=== PATIENT | male | born 1955 | race Caucasian/White ===

== ENCOUNTER → 2018-12-06 10:03 | Outpatient (CLI) | payer MEDICAID, SELFPAY ==
--- NOTE | 2018-12-06 10:08 | CI_ITS ---
Cerebrovascular Exam Indications: Follow-up carotid 433.10. IMPRESSIONS 1. Theright vertebral arteryis patent with normal antegrade flow. The left vertebral arteryshows low flow with retrograde flow. 2. Study suggests 20-49% stenosis involving the right internal carotid artery. No change from the study of 16-Feb-2018. 3. Study suggests 50-69% stenosis involving the left internal carotid artery. No change from the study of 16-Feb-2018. 4. Study suggests>50% stenosis involving the left external carotid artery. No change from the study of 16-Feb-2018. History: Risk factors: Current tobacco use. Carotid duplex study. Complete study and Doppler flow study including spectral analysis, color and rodriguez scale imaging. Height: Height: 165.1cm. Height: 65in. Weight: Weight: 81.6kg. Weight: 179.6lb. Body mass index: BMI: 30kg/m^2. Body surface area: BSA: 1.96m^2. Location: Vascular laboratory. Patient status: Outpatient. Tables: Arterial flow: + +--------+--------+ Location V [facility] V ed + +--------+--------+ Right CCA - proximal 71.5cm/s 14.1cm/s + +--------+--------+ Right CCA - distal 77.8cm/s 19.6cm/s + +--------+--------+ Right ECA 130cm/s 16.2cm/s + +--------+--------+ Right ICA - proximal 91.1cm/s 24.4cm/s + +--------+--------+ Right ICA - mid 91.1cm/s 26.7cm/s + +--------+--------+ Right ICA - distal 77.5cm/s 23.4cm/s + +--------+--------+ Right vertebral 35.4cm/s 12.6cm/s + +--------+--------+ Left CCA - proximal 107cm/s 18.7cm/s + +--------+--------+ Left CCA - distal 79.7cm/s 17.8cm/s + +--------+--------+ Left ECA 294cm/s 33.2cm/s + +--------+--------+ Left ICA - proximal 136cm/s 38.4cm/s + +--------+--------+ Left ICA - mid 96.9cm/s 27.7cm/s + +--------+--------+ Left ICA - distal 65.3cm/s 16.4cm/s + +--------+--------+ Left vertebral 33.5cm/s -------- + +--------+--------+ Velocity ratios: + + + + + + Right, V sys Right, V ed Left, V sys Left, V ed + + + + + + Max ICA/dist CCA 1.17 1.36 1.71 2.16 + + + + + + (Report amended ) Electronically signed by: Gianfranco Gavin [id number]
== END ==
PROVIDERS: PCP Nurse Practitioner; Visit Provider Internal Medicine
DX: I65.23 Occlusion and stenosis of bilateral carotid arteries (principal); D75.1 Secondary polycythemia; E78.5 Hyperlipidemia, unspecified; H34.212 Partial retinal artery occlusion, left eye; I11.9 Hypertensive heart disease without heart failure; I25.10 Atherosclerotic heart disease of native coronary artery without angina pectoris; I73.9 Peripheral vascular disease, unspecified; J44.9 Chronic obstructive pulmonary disease, unspecified
CPT/HCPCS: 93880

== ENCOUNTER → 2019-08-01 09:56 | Outpatient (CLI) | payer MEDICAID, SELFPAY ==
[2019-08-01 16:17] LABS: Alanine Aminotransferase 30 U/L (12-78); Albumin Level 3.8 gm/dL (3.4-5.0); Alkaline Phosphatase 116 U/L (46-116); Aspartate Amino Transferase 21 U/L (15-37); Bilirubin,Direct 0.1 mg/dL (0.0-0.2); Bilirubin,Indirect 0.3 mg/dL (0.0-0.9); Bilirubin,Total 0.4 mg/dL (0.2-1.0); Chol/HDL Ratio 5.9 (1-3.5); Cholesterol 154 mg/dL (140-200); HDL Cholesterol 26 mg/dL (27-67); LDL Cholesterol 64 mg/dL (0-130); Triglycerides 318 mg/dL (30-200); VLDL Cholesterol 64 mg/dL (0-40)
== END ==
PROVIDERS: Visit Provider Urology
DX: E78.5 Hyperlipidemia, unspecified (principal); I25.10 Atherosclerotic heart disease of native coronary artery without angina pectoris; I65.29 Occlusion and stenosis of unspecified carotid artery
CPT/HCPCS: 36415; 80061; 80076

== ENCOUNTER → 2021-06-23 10:21 | Outpatient (CLI) | payer MEDICAID, SELFPAY ==
--- NOTE | 2021-06-23 10:22 | CA_ITS ---
APPROVED REPORT Centerless Grinder Tender: JESS Laterality: Bilateral Study Quality: Adequate Indications: SHIREEN Risk Factors Hypertension: CAD, Smoking Doppler Spectral Velocity Analysis ECA (R) 131.10/15.40 cm/s ECA (L) 533.00/30.70 cm/s dICA (R) 87.40/20.60 cm/s dICA (L) 113.70/12.50 cm/s Evaristo (R) 76.30/18.00 cm/s Evaristo (L) 135.10/25.10 cm/s pICA (R) 103.70/18.00 cm/s pICA (L) 172.50/32.50 cm/s dCCA (R) 79.70/11.10 cm/s dCCA (L) 79.70/12.90 cm/s pCCA (R) 81.40/9.40 cm/s pCCA (L) 98.50/13.70 cm/s Vert (R) 26.60/11.10 cm/s Vert (L) 61.60/24.10 cm/s ICA/CCA 1.30 ICA/CCA 1.75 Findings Duplex evaluation demonstrates stenosis of the right proximal internal carotid artery in the range of 20-49% with PSV <140 cm/sec, EDV <100 cm/sec, and IC/CC Ratio <4.0. Duplex evaluation demonstrates antegrade flow of the bilateral Vertebral Arteries. Duplex evaluation demonstrates stenosis of the left proximal internal carotid artery in the range of 50-69% with PSV =140 cm/sec, EDV <100 cm/sec, and IC/CC Ratio <4.0. Conclusion Duplex evaluation demonstrates stenosis of the right proximal internal carotid artery in the range of 20-49% with PSV <140 cm/sec, EDV <100 cm/sec, and IC/CC Ratio <4.0. Duplex evaluation demonstrates antegrade flow of the bilateral Vertebral Arteries. Duplex evaluation demonstrates stenosis of the left proximal internal carotid artery in the range of 50-69% with PSV =140 cm/sec, EDV <100 cm/sec, and IC/CC Ratio <4.0. Electronically signed by : Steve Pierson MD 06/24/2021 18:51:09
--- NOTE | 2021-06-23 10:38 | CA_ITS ---
APPROVED REPORT EXAM: Comprehensive 2D, Doppler, and color-flow Echocardiogram Sports Development Officer: CHAYO Santana, RVS Ht: 5 ft 5 in Wt: 170lbs BSA: 1.85 BP: 147/86 mmHg Indications: CAD, smoker, hx-aFIB, hX 2D Dimensions Left Atrium 2.92 cm LA Volume 34.90 mL LVOT 2.08 cm (M/F) 1.5-2.5 LA Volume Index 18.90 mL/m2 (M/F) 16-34 M-Mode Dimensions RVDd 3.49 cm (0.9-2.6) LA Diam 3.81 cm (1.9-4.0) LVDd 4.44 cm (3.5-5.7) Ao Diam 3.34 cm (2.0-3.7) LVDs 3.34 cm (3.5-5.7) IVSd 0.95 cm (0.6-1.1) PWd 0.76 cm (0.6-1.1) EF (Teich) 49.30% EPSs 0.46 cm FS 24.80% EDV (Teich) 89.60 mL TAPSE 1.91 (<1.7) ESV (Teich) 45.40 mL LV Diastology E Decel Time 307.00 (160-240 msec) E/A Ratio 0.80 MED E' 6.00 (< 7 cm/sec) MED A' 7.80 cm/s E'/MED E' Ratio 8.42 (>14) LAT E' 6.60 (<10 cm/sec) LAT A' 9.40 cm/s E/LAT E' Ratio 7.65 (>14) Aortic Valve AoV Peak Leobardo. 173.00 (50-130 cm/s) AO Peak GR. 12.00 mmHg AO Mean GR. 6.30 (<5 mmHg) AO VTI 31.10 (18-25 cm) Mitral Valve MV A Velocity 63.00 (40-130 cm/s) E/A Ratio 0.80 MV Decel. Time 307.00 (160-240 ms) Pulmonary Valve PV Peak Velocity 96.00 (50-150 cm/s) Left Ventricle Left atrium is mildly enlarged, left ventricle is normal size, mild concentric left ventricular hypertrophy, visually estimated ejection fraction 55% with no regional wall motion abnormality, grade 1 diastolic dysfunction seen without tissue Doppler evidence of raise left atrial pressure. Right Ventricle Right atrium and right ventricle are mildly enlarged with normal contractility. Aortic Valve Aortic valve is thickened and calcified without Doppler evidence of aortic stenosis or aortic insufficiency. Mitral Valve Mitral valve leaflets are minimally thickened, there is mild mitral regurgitation. Tricuspid Valve Tricuspid valve grossly normal, there is mild tricuspid regurgitation, tricuspid regurgitation jet velocity is inadequate for calculation of the right ventricular systolic pressure. Pulmonic Valve Pulmonic valve is poorly visualized. Great Vessels Aortic root is normal size. Inferior vena cava is normal size with normal inspiratory collapse. Pericardium No significant pericardial effusion noted. Conclusion 1. Mild biatrial enlargement, normal left ventricular size, mild concentric left ventricular hypertrophy, visually estimated ejection fraction 55% with no regional wall motion abnormality, grade 1 diastolic dysfunction seen without tissue Doppler evidence of raise left atrial pressure. 2. Mild mitral and tricuspid regurgitation. 3. No significant pericardial effusion noted. 4. Inferior vena cava is normal size with normal inspiratory collapse. Electronically signed by : Amilcar Wang MD 06/23/2021 20:55:53
== END ==
PROVIDERS: Visit Provider Urology
DX: I65.23 Occlusion and stenosis of bilateral carotid arteries (principal); R09.89 Other specified symptoms and signs involving the circulatory and respiratory systems; I25.10 Atherosclerotic heart disease of native coronary artery without angina pectoris; I11.9 Hypertensive heart disease without heart failure; D75.1 Secondary polycythemia; E78.2 Mixed hyperlipidemia; H34.212 Partial retinal artery occlusion, left eye; Z72.0 Tobacco use; E78.5 Hyperlipidemia, unspecified; R94.31 Abnormal electrocardiogram [ECG] [EKG]
CPT/HCPCS: 93306; 93880

== ENCOUNTER → 2022-06-22 10:16 | Outpatient (CLI) | payer MEDICARE, MEDICAID, SELFPAY ==
--- NOTE | 2022-06-22 10:18 | CA_ITS ---
FINAL REPORT TECHNIQUE: Color Doppler, duplex Doppler and rodriguez scale sonography of the bilateral neck arterial vasculature was performed. Velocities were measured in the carotid arteries. Stenosis evaluation based on the validated velocity criteria. CLINICAL HISTORY: SHIREEN,HTN,HLD,SMOKER FINDINGS: The peak systolic velocity of the right common carotid artery is 63 cm/s. The peak systolic velocity of the right internal carotid artery is 95 cm/s and end diastolic velocity 16 cm/s. The ICA/CCA ratio is 1.5. A moderate amount of plaque is present. The right external carotid artery is patent. The right vertebral artery is patent with antegrade flow. The peak systolic velocity of the left common carotid artery is 74 cm/s. The peak systolic velocity of the left internal carotid artery is 169 cm/s and end diastolic velocity 31 cm/s. The ICA/CCA ratio is 2.3. A moderate amount of plaque is present. The left external carotid artery is patent.The left vertebral artery is patent with antegrade flow. IMPRESSION: Less than 50% right carotid stenosis. There is elevation of the left ICA/CCA ratio of uncertain significance. Moderate stenosis is not excluded. Recommend CTA or catheter angiogram to further evaluate. Bilateral patent vertebral arteries with antegrade flow. Reviewed, Interpreted and Dictated by Tl Lenz III, MD Transcribed by Cynthia Washburn Authenticated and [facility]
== END ==
PROVIDERS: PCP Internal Medicine; Visit Provider Nurse Practitioner Family
DX: I65.23 Occlusion and stenosis of bilateral carotid arteries (principal)
CPT/HCPCS: 93880

== ENCOUNTER → 2022-07-08 11:58 | Outpatient (CLI) | payer MEDICARE, MEDICAID, SELFPAY ==
[2022-07-08 13:08] LABS: Blood Urea Nitrogen 12 mg/dl (9-20); Estimated Glomerular Filt Rate 97 ml/min (>60); GFR (African American) 117 ML/MIN (>60)
--- NOTE | 2022-07-08 13:11 | CT_ITS ---
FINAL REPORT TECHNIQUE: Thin section axial CT with IV contrast supplemented with multiplanar reconstruction under CT angiogram protocol. This study was performed with techniques to keep radiation doses as low as reasonably achievable (ALARA). Individualized dose reduction techniques using automated exposure control or adjustment of mA and/or kV according to the patient''s size were employed. NASCET criteria was utilized during interpretation. CLINICAL HISTORY: abnl carotid artery u/s FINDINGS: Aortic arch: Arch shows no significant narrowing. Great vessel origins are widely patent. Right carotid: There is calcified plaque at the carotid bifurcation and carotid bulb. No significant stenosis is seen of the cervical common or internal carotid artery. Left carotid: There is calcified plaque at the carotid bifurcation and carotid bulb. There is irregular plaque in the left bulb with less than 50% stenosis. The more distal left ICA is patent. Vertebral: The left vertebral artery is diminutive and may be congenitally hypoplastic. No significant stenosis is present. IMPRESSION: Calcified plaque at the bifurcations and carotid bulbs bilaterally with less than 50% stenosis. Diminutive left vertebral artery may be congenitally hypoplastic. Reviewed, Interpreted and Dictated by Tl Lenz III, MD Transcribed by Olman Pan Authenticated and [facility]
== END ==
PROVIDERS: PCP Internal Medicine; Visit Provider Physician Assistant
DX: I65.23 Occlusion and stenosis of bilateral carotid arteries (principal); R93.89 Abnormal findings on diagnostic imaging of other specified body structures
CPT/HCPCS: 36415; 70498; 82565; 84520; Q9967

== ENCOUNTER → 2023-04-20 10:49 | Outpatient (CLI) | payer MEDICARE, MEDICAID, SELFPAY ==
[2023-04-20 11:24] LABS: Basophils # 0.1 K/mm3 (0-0.2); Basophils % 0.7 % (0.1-2.0); Eosinophils # 0.2 K/mm3 (0.0-0.4); Eosinophils % 1.9 % (0.1-12.0); Hematocrit 55.2 % (42.0-52.0); Lymphocytes # 2.3 K/mm3 (0.7-4.5); Lymphocytes % 18.7 % (10-50); Mean Corpuscular HGB Conc 32.8 g/dL (31.8-35.4); Mean Corpuscular Hemoglobin 30.6 pg (27.0-31.2); Mean Corpuscular Volume 93.4 fl (80-94); Mean Platelet Volume 7.5 fl (7.4-10.4); Monocytes # 0.9 K/mm3 (0.1-1.0); Monocytes % 7.3 % (1.7-9.3); Neutrophils # 8.7 K/mm3 (1.8-7.8); Neutrophils % 71.4 % (37.0-80.0); Platelet Count 335 K/mm3 (142-424); Red Blood Count 5.91 M/mm3 (4.60-6.20); Red Cell Distribution Width 13.4 % (11.5-17.5); White Blood Count 12.2 K/mm3 (4.8-10.8)
[2023-04-20 11:47] LABS: Alanine Aminotransferase 23 U/L (12-78); Albumin Level 4.1 g/dl (3.5-5.0); Alkaline Phosphatase 134 U/L (38-126); Anion Gap 12.4 mEq/L (5-15); Aspartate Amino Transferase 30 U/L (17-59); Bilirubin,Indirect 0.3 mg/dL (0.0-0.9); Bilirubin,Total 0.3 mg/dl (0.2-1.3); Bilirubin,Unconjugated 0.5 mg/dL (0.0-1.1); Blood Urea Nitrogen 11 mg/dl (9-20); Calcium 10.5 mg/dl (8.4-10.2); Carbon Dioxide 32 mmol/L (22.0-30.0); Chloride 101 mmol/L (98-107); Chol/HDL Ratio 4.8 (1-3.5); Cholesterol 163 mg/dl (140-200); Estimated Glomerular Filt Rate 84 ml/min (>60); GFR (African American) 102 ML/MIN (>60); Glucose 76 mg/dl (74-100); HDL Cholesterol 34 mg/dl (40-60); Potassium 3.4 mmoL/L (3.5-5.1); Sodium 142 mmol/L (136-145); Total Protein,Serum 6.9 g/dl (6.3-8.2); Triglycerides 328 mg/dl (30-150); VLDL Cholesterol 66 mg/dL (0-40)
[2023-04-20 11:57] LABS: Direct LDL Cholesterol 90.58 mg/dL (100-129)
[2023-04-20 12:04] LABS: Free T4 (Free Thyroxine) 0.77 ng/dl (0.78-2.19)
[2023-04-20 12:18] LABS: Thyroid Stimulating Hormone 1.98 uIU/mL (0.465-4.68)
[2023-04-20 14:40] LABS: Hemoglobin 18.1 g/dL (14.1-18.0)
== END ==
PROVIDERS: Visit Provider Nurse Practitioner
DX: E78.5 Hyperlipidemia, unspecified (principal); I11.9 Hypertensive heart disease without heart failure; I25.10 Atherosclerotic heart disease of native coronary artery without angina pectoris; I65.29 Occlusion and stenosis of unspecified carotid artery; J44.9 Chronic obstructive pulmonary disease, unspecified; Z72.0 Tobacco use; I63.9 Cerebral infarction, unspecified; R06.00 Dyspnea, unspecified; E11.9 Type 2 diabetes mellitus without complications; Z79.84 Long term (current) use of oral hypoglycemic drugs
CPT/HCPCS: 36415; 80048; 80061; 80076; 84439; 84443; 85025

== ENCOUNTER 2023-12-27 08:59 | Outpatient (CLI) | payer MEDICARE, MEDICAID, SELFPAY ==
--- NOTE | 2023-12-27 09:00 | CA_ITS ---
FINAL REPORT TECHNIQUE: Color Doppler, duplex Doppler and rodriguez scale sonography of the bilateral neck vasculature was performed. Velocities were measured in the carotid arteries. Stenosis evaluation based on velocity criteria. CLINICAL HISTORY: SHIREEN, smoker ,dm ,hld previous exam 06/26 COMPARISON: 06/22/2022 FINDINGS: The peak systolic velocity of the right common carotid artery is 86 cm/sec and internal carotid artery 120 cm/sec. The diastolic velocity in the internal carotid artery is 25 cm/sec. The ICA/CCA ratio is 1.9. Visually, a small to moderate amount of plaque, some calcified, is seen. These findings are consistent with less than 50% stenosis. The external carotid artery is patent. The right vertebral artery is patent with antegrade flow. The peak systolic velocity of the left common carotid artery is 109 cm/sec and internal carotid artery 166 cm/sec. The diastolic velocity in the internal carotid artery is 33 cm/sec. The ICA/CCA ratio is 1.7. Visually, a small to moderate amount of plaque, some calcified, is seen. These findings are consistent with less than 50% stenosis. The external carotid artery is patent. The left vertebral artery is patent with antegrade flow. IMPRESSION: Velocities and ICA/CCA ratios are consistent with less than 50% stenosis in the carotid arteries bilaterally. There is moderate irregular calcified plaque identified. Bilateral patent vertebral arteries. If indicated, CTA or MRA could further evaluate. Reviewed, Interpreted and Dictated by Ramirez Staley MD Transcribed by Larissa Bowen Authenticated and [facility]
== END 2023-12-27 23:59 | disposition home or self-care (01) ==
LOC: RT 09:00
PROVIDERS: Visit Provider Nurse Practitioner Family
DX: R09.89 Other specified symptoms and signs involving the circulatory and respiratory systems (principal); I25.10 Atherosclerotic heart disease of native coronary artery without angina pectoris; I11.9 Hypertensive heart disease without heart failure; E78.5 Hyperlipidemia, unspecified; Z72.0 Tobacco use; J44.9 Chronic obstructive pulmonary disease, unspecified; I65.23 Occlusion and stenosis of bilateral carotid arteries
CPT/HCPCS: 93880

== ENCOUNTER 2025-01-02 10:50 | Outpatient (CLI) | payer MEDICARE, MEDICAID, SELFPAY ==
[2025-01-02 11:09] LABS: Basophils # 0.1 K/mm3 (0-0.2); Basophils % 0.8 % (0.1-2.0); Eosinophils # 0.3 Kmm3 (0.0-0.4); Eosinophils % 2.8 % (0.1-12.0); Hematocrit 46.5 % (42.0-52.0); Hemoglobin 15.7 g/dL (14.1-18.0); Lymphocytes # 2.6 K/mm3 (0.7-4.5); Lymphocytes % 25.7 % (10-50); Mean Corpuscular HGB Conc 33.8 g/dL (31.8-35.4); Mean Corpuscular Hemoglobin 31.2 pg (27.0-31.2); Mean Corpuscular Volume 92.4 fl (80-94); Mean Platelet Volume 9.1 fl (7.4-10.4); Monocytes # 1.2 K/mm3 (0.1-1.0); Monocytes % 12.2 % (1.7-9.3); Neutrophils # 5.8 K/mm3 (1.8-7.8); Neutrophils % 57.8 % (37.0-80.0); Nucleated Red Blood Cells # 0 10^3/uL; Nucleated Red Blood Cells % 0 %; Platelet Count 327 K/mm3 (142-424); Red Blood Count 5.03 M/mm3 (4.60-6.20); Red Cell Distribution Width 13.1 % (11.5-17.5); Red Cell Distribution Width-SD 44.4 fL; White Blood Count 10.1 K/mm3 (4.8-10.8)
[2025-01-02 11:36] LABS: Alanine Aminotransferase 20 U/L (12-78); Albumin Level 4.1 g/dl (3.5-5.0); Alkaline Phosphatase 119 U/L (38-126); Anion Gap 9.8 mEq/L (5-15); Aspartate Amino Transferase 23 U/L (17-59); Bilirubin,Direct 0.2 mg/dl (0.0-0.4); Bilirubin,Indirect 0.3 mg/dL (0.0-0.9); Bilirubin,Total 0.5 mg/dl (0.2-1.3); Bilirubin,Unconjugated 0.2 mg/dL (0.0-1.1); Blood Urea Nitrogen 25 mg/dl (9-20); Calcium 10.4 mg/dl (8.4-10.2); Carbon Dioxide 27 mmol/L (22.0-30.0); Chloride 106 mmol/L (98-107); Chol/HDL Ratio 4.2 (1-3.5); Cholesterol 121 mg/dl (140-200); Estimated Glomerular Filt Rate 55 ml/min (>60); GFR (African American) 67 ML/MIN (>60); Glucose 79 mg/dl (74-100); HDL Cholesterol 29 mg/dl (40-60); Potassium 3.8 mmoL/L (3.5-5.1); Sodium 139 mmol/L (136-145); Total Protein,Serum 6.3 g/dl (6.3-8.2); Triglycerides 259 mg/dl (30-150); VLDL Cholesterol 52 mg/dL (0-40)
[2025-01-02 11:48] LABS: Direct LDL Cholesterol 54.91 mg/dL (100-129)
[2025-01-02 11:51] LABS: Free T4 (Free Thyroxine) 0.84 ng/dl (0.78-2.19)
[2025-01-02 12:07] LABS: Thyroid Stimulating Hormone 1.18 uIU/mL (0.465-4.68)
== END 2025-01-02 23:59 | disposition home or self-care (01) ==
LOC: LAB 10:52
PROVIDERS: PCP Family Medicine; Visit Provider Nurse Practitioner Family
DX: I07.1 Rheumatic tricuspid insufficiency (principal); I34.0 Nonrheumatic mitral (valve) insufficiency; I10 Essential (primary) hypertension; E78.5 Hyperlipidemia, unspecified; I65.23 Occlusion and stenosis of bilateral carotid arteries
CPT/HCPCS: 36415; 80048; 80061; 80076; 84439; 84443; 85025

== ENCOUNTER 2025-02-07 09:13 | Outpatient (CLI) | payer MEDICARE, MEDICAID, SELFPAY ==
--- NOTE | 2025-02-07 09:30 | CA_ITS ---
APPROVED REPORT EXAM: Comprehensive 2D, Doppler, and color-flow Echocardiogram Electric Range Servicer: Mariel Polo RT(R) Ht: 5 ft 5 in Wt: 150lbs BSA: 1.75 BP: 114/72 mmHg Indications: edema, diabetes, hypertension, smoker, dyspnea on exertion, CAD. 2D Dimensions LVEF (Antonio's) 58.40 % M: 52 - 72 LV Volume 86.40 mL M: 62 - 150 LV Volume Index 49.4 mL/m2 M: 34 - 74 EF AP4 58.90 % EF AP2 58.7 % EF BP 58.4 % GL Strain -13.3 % M-Mode Dimensions RVDd 2.97 cm (0.9-2.6) LA Diam 2.18 cm (1.9-4.0) LVDd 3.82 cm (3.5-5.7) LVDs 2.68 cm (3.5-5.7) IVSd 1.06 cm (0.6-1.1) PWd 0.98 cm (0.6-1.1) EF (Teich) 57.70% FS 29.80% EDV (Teich) 62.70 mL ESV (Teich) 26.50 mL LV Diastology E Decel Time 227 (160-240 msec) E/A Ratio 0.7 Mitral Valve MV E Max Leobardo. 49.0 (40-130 cm/s) MV A Velocity 73.0 (40-130 cm/s) E/A Ratio 0.66 MV PHT 66.0 ms Left Ventricle The left ventricle is normal size. The left ventricular systolic function is normal. The left ventricular ejection fraction is within the normal range. There is marked increase in LV wall thickness. IVSD is 1.4 cm. There is normal LV segmental wall motion. Transmitral Doppler flow pattern suggests impaired LV relaxation. LVEF is 60%. Right Ventricle The right ventricle is normal size. The right ventricular systolic function is normal. Atria The left atrium size is normal. The right atrium size is normal. There is no Doppler evidence of interatrial shunt. Aortic Valve Aortic valve is mildly thickened. There is no aortic valvular stenosis. Trace aortic regurgitation. Mitral Valve The mitral valve is normal in structure. No evidence of mitral valve stenosis. Trace mitral regurgitation. Tricuspid Valve Tricuspid valve is grossly normal in structure and function. Trace tricuspid regurgitation. There is insufficient TR jet to estimate RVSP. Pulmonic Valve The pulmonary valve is normal in structure. Trace pulmonic regurgitation. Great Vessels The aortic root is normal in size. IVC is normal in size and collapses >50% with inspiration. Pericardium There is no pericardial effusion. Other Information Study Quality: Fair Conclusion Normal biventricular systolic function. Marked increase in LV wall thickness. IVSD is 1.4 cm. No significant valvular stenosis or regurgitation. In the setting of marked increased LV wall thickness, further evaluation for infiltrative cardiomyopathy is suggested with cardiac MRI (amyloidosis protocol), PYP nuclear scan, and amyloidosis lab testing. Electronically signed by : Laura Baltazar MD 02/14/2025 14:36:16
== END 2025-02-07 23:59 | disposition home or self-care (01) ==
LOC: RT 09:14
PROVIDERS: PCP Family Medicine; Visit Provider Nurse Practitioner Family
DX: I08.1 Rheumatic disorders of both mitral and tricuspid valves (principal); I11.9 Hypertensive heart disease without heart failure; I65.29 Occlusion and stenosis of unspecified carotid artery; F17.200 Nicotine dependence, unspecified, uncomplicated; I25.10 Atherosclerotic heart disease of native coronary artery without angina pectoris; E11.9 Type 2 diabetes mellitus without complications; E78.5 Hyperlipidemia, unspecified
CPT/HCPCS: 93306

== ENCOUNTER 2025-03-05 09:28 | Outpatient (CLI) | payer MEDICARE, MEDICAID, SELFPAY ==
[2025-03-05 10:33] LABS: Chloride 102 mmol/L (98-107); Potassium 4.0 mmoL/L (3.5-5.1)
[2025-03-05 10:36] LABS: Blood Urea Nitrogen 21 mg/dl (9-20); Calcium 9.9 mg/dl (8.4-10.2); Carbon Dioxide 29 mmol/L (22.0-30.0); Creatinine,Serum 1.00 mg/dl (0.66-1.25); Estimated Glomerular Filt Rate 74 ml/min (>60); GFR (African American) 90 ML/MIN (>60); Glucose 89 mg/dl (74-100); Total Protein,Serum 6.1 g/dl (6.3-8.2)
[2025-03-05 11:10] LABS: Anion Gap 8.0 mEq/L (5-15); Sodium 135 mmol/L (136-145)
[2025-03-06 15:34] LABS: Albumin 3.2 g/dL (2.9-4.4); Alpha-1-Globulin 0.2 g/dL (0.0-0.4); Alpha-2-Globulin 0.7 g/dL (0.4-1.0); Gamma Globulin 0.8 g/dL (0.4-1.8)
[2025-03-07 16:23] LABS: Immunoglobulin A, Qn 192 mg/dL (61-437); Immunoglobulin G, Qn 687 mg/dL (603-1613); Immunoglobulin M, Qn 217 mg/dL (20-172)
[2025-03-10 15:45] LABS: PDF SCANNED REPORT
== END 2025-03-05 23:59 | disposition home or self-care (01) ==
LOC: LAB 09:29
PROVIDERS: Visit Provider Nurse Practitioner Family
DX: E85.89 Other amyloidosis (principal); R93.1 Abnormal findings on diagnostic imaging of heart and coronary circulation; I65.23 Occlusion and stenosis of bilateral carotid arteries; I25.10 Atherosclerotic heart disease of native coronary artery without angina pectoris; I11.9 Hypertensive heart disease without heart failure
CPT/HCPCS: 36415; 80048; 82565; 82784; 83521; 84155; 84165; 84520; 86334

== ENCOUNTER 2025-03-20 10:13 | Outpatient (CLI) | payer MEDICARE, MEDICAID, SELFPAY ==
--- NOTE | 2025-03-20 10:30 | MR_ITS ---
APPROVED REPORT River Guide: CLINICAL INDICATION Increased LV wall thickness, evaluation for infiltrative cardiomyopathy TECHNIQUE Image Acquisition: Cardiac magnetic resonance (CMR) was performed on Siemens Espree MRI 1.5T scanner. Software platform sequences were performed using the Siemens Xactium MR B19 platform. A set of three-plane, low-resolution, large [id number] localizers were initially acquired. Then axial, coronal, sagittal TrueFISP, as well as axial HASTE images, were obtained. These were followed by gated TrueFISP breathold cinematic sequences obtained in the short axis with 8 mm slices and 2 mm gaps, 2-chamber (vertical long axis), 3-chamber, 4-chamber (horizontal long axis). A bolus of contrast was injected intravenously with first-pass sequences obtained in the short axis and four-chamber planes. After approximately 10 minutes, a TI qa engineer sequence was performed to determine the optimal TI time. Using the optimized TI time, delayed contrast enhancement segmented inversion???recovery TurboFLASH sequences were obtained in the short axis, 2-chamber, 3-chamber, and 4-chamber projections. 2D-velocity phase mapping was performed. Functional parameters were calculated by offline analysis on an independent workstation ([employer], [employer]). Contrast: ProHance??? (Gadoteridol) FINDINGS MORPHOLOGY AND FUNCTION Left ventricle: The left ventricle cavity is small. The indexed left ventricular end-diastolic volume (LVEDVi) is 35 ml/m2 (reference range 57-105 ml/m2 in males, 56-96 ml/m2 in females). Low normal left ventricular systolic function is present. There is concentric increase in left ventricular wall thickness, up to 14.6 mm. There are no regional wall motion abnormalities noted. LVEF is calculated at 52.0% (reference range 57-77%). Right ventricle: The right ventricle cavity is small. The indexed right ventricular end-diastolic volume (RVEDVi) is 34 ml/m2 (reference range 61-121 ml/m2 in males, 48-112 ml/m2 in females). Mild reduction in right ventricular systolic function is present. RVEF is calculated at 43.0% (reference range 52-72% in males, 51-71% in females). Atria: The left atrium is normal in size. The maximum indexed left atrial volume is 19 ml/m2 (reference range 26-52 ml/m2 in males, 27-53 ml/m2 in females). The right atrium is normal in size. The maximum indexed right atrial volume is 18 ml/m2 (reference range 18-90 ml/m2). Aorta: The diameter of the aortic annulus is normal, measuring 30 mm (coronal view reference range 21-30 mm in males, 19-27 mm in females). The diameter of the aortic sinus is normal, measuring 36 mm (coronal view reference range 25-42 mm in males, 24-36 mm in females). The diameter of the sinotubular junction is normal, measuring 29 mm (coronal view reference range 18-32 mm in males, 18-28 mm in females). The diameters of the ascending and descending thoracic aorta are normal. Main pulmonary artery: The main pulmonary artery is mildly dilated, measuring 32 mm in diameter. Pericardium: The pericardial thickness is normal. The pericardial thickness measures 1.5 mm (normal < 4.0 mm). There is a trivial circumferential pericardial effusion present. VALVES The valvular morphologies in the visualized sequences appear normal. There is no significant valvular stenosis or regurgitation of the mitral, aortic, tricuspid, or pulmonic valve noted visually. Systolic anterior motion of the mitral valve is not visualized. Ratio of pulmonary to systemic flow, Qp:Qs ratio = 0.9 (normal < or = 1.2, hemodynamically significant shunt > 1.5), demonstrating no evidence of hemodynamically significant shunt. TISSUE CHARACTERIZATION Resting Perfusion: Perfusion analysis is not performed in the study. Myocardial Fibrosis and/or edema: Multiple patterns of late gadolinium enhancement are present, including transmural LGE in the basal to mid inferior LV wall, mid-myocardial LGE in the inferolateral and lateral LV adrian, as well as patchy LGE in the septal and anterior LV adrian. The LGE is consistent with presence of myocardial scarring or fibrosis in the corresponding regions. OTHER Diffuse pulmonary groundglass opacities bilaterally with increased interstitial markings bibasally. Correlation with CT chest is suggested. IMPRESSION Small LV cavity with low normal LV systolic function. LVEDVi= 35 ml/m2 and LVEF= 52.0%. Marked concentric increase in LV wall thickness up to 14.6 mm. Small RV cavity with mild reduction in RV systolic function. RVEDVi= 34 ml/m2 and RVEF= 43.0%. No atrial enlargement. Multiple patterns of late gadolinium enhancement are present, including transmural LGE in the basal to mid inferior LV wall, mid-myocardial LGE in the inferolateral and lateral LV adrian, as well as patchy LGE in the septal and anterior LV adrian. Ratio of pulmonary to systemic flow, Qp:Qs ratio = 0.9 (normal < or = 1.2, hemodynamically significant shunt > 1.5), demonstrating no evidence of hemodynamically significant shunt. Trivial circumferential pericardial effusion is present. Diffuse pulmonary groundglass opacities bilaterally with increased interstitial markings bibasally. Correlation with CT chest is suggested. Mildly dilated pulmonary artery (32 mm in diameter). This CMR demonstrates presence of small LV cavity with low-normal LV systolic function, as well as marked concentric increase in LV wall thickness with presence of multiple LGE patterns including transmural/mid myocardial/and patchy LGE within the LV. The above combination of findings is highly suggestive of infiltrative cardiomyopathy, namely amyloidosis, in the appropriate clinical setting. Alternatively, cardiac sarcoidosis versus myocarditis may also be considered, however these are less likely considering the above constellation of findings. Finally, the diagnosis of HCM may also be considered, but the LV wall thickness < 15 mm along with the variation of LGE patterns makes the diagnosis also less likely. Further evaluation, including PYP nuclear scan and amyloidosis blood/urine lab testing, is recommended for confirmation vs. ruling out amyloidosis and for the determination of AL vs. ATTR subtype. Referral for hematology consultation is also suggested. COMPARISON None CRITICAL RESULT None COMMUNICATION The above findings were relayed to the patient at the time of the outpatient cardiology follow-up visit. The findings of this cardiac MR were reviewed, reported, and signed by Jerel Baltazar MD (Copy Editor). Conclusion Electronically signed by : Laura Baltazar MD 04/01/2025 21:00:40
[2025-03-20] MEDS: GADOTERIDOL INJ 20ML SYRINGE 16 ML IV (11:19)
[2025-03-20] MEDS: 0.9 % SODIUM CHLORIDE 50 ML VIAL 20 ML IV (11:19)
[2025-03-20] MEDS: SODIUM CHLORIDE 0.9% 10ML SYR (RAD ONLY) 10 ML IV (11:19)
== END 2025-03-20 23:59 | disposition home or self-care (01) ==
LOC: RAD 10:13
PROVIDERS: PCP Nurse Practitioner Family; Visit Provider Nurse Practitioner Family
DX: I51.7 Cardiomegaly (principal); I28.1 Aneurysm of pulmonary artery; R93.1 Abnormal findings on diagnostic imaging of heart and coronary circulation; E85.89 Other amyloidosis
CPT/HCPCS: 75561; A9576

== ENCOUNTER 2025-04-29 07:58 | Outpatient (CLI) | payer MEDICARE, MEDICAID, SELFPAY ==
--- NOTE | 2025-04-29 08:00 | NM_ITS ---
APPROVED REPORT Boil Off Worker: Procedure: 99mTc-PYP Cardiac Amyloidosis Imaging Clinical Indication: Heart failure, increased LV wall thickness Protocol: The patient received 24.8 mCi 99mTc-PYP intravenously. Planar and SPECT imaging was performed approximately 3 hours post injection. Planar images included anterior, left lateral and IDA-45 projections. Findings: Visual interpretation: Planar and SPECT images were reviewed The overall quality of the study was good. Semi quantitative SPECT findings showed a grade 0. Planar imaging demonstrates a heart to contralateral ratio of 1.2 (normal<1.5, equivocal=1.2-1.4, abnormal>1.5). Impression: 1. Overall, the quality of the study was good. 2. Semi quantitative SPECT findings showed grade 0. 3. Overall interpretation of the findings is not suggestive of ATTR amyloidosis. This study and report were reviewed and signed by Jerel Baltazar MD (marketing writer). Conclusion Electronically signed by : Laura Baltazar MD 04/29/2025 12:51:47
[2025-04-29 11:07] LABS: POC Glucose,Bedside 150 (70-110)
[2025-04-29] MEDS: PYROPHOSPHATE CARDIAC (PYP);1 DOSE VIAL IV (11:09)
[2025-04-29] MEDS: SODIUM CHLORIDE 0.9% 10ML SYR (RAD ONLY) 10 ML IV (11:09)
== END 2025-04-29 23:59 | disposition home or self-care (01) ==
PROVIDERS: PCP Family Medicine; Visit Provider Nurse Practitioner Family
DX: E85.89 Other amyloidosis (principal)
CPT/HCPCS: 78803; 82962

== ENCOUNTER 2025-04-30 14:12 | Outpatient (CLI) | payer MEDICARE, MEDICAID, SELFPAY ==
[2025-04-30 14:33] LABS: Hematocrit 46.1 % (42.0-52.0); Hemoglobin 15.6 g/dL (14.1-18.0); Immature Granulocytes % 0.6 %; Mean Corpuscular HGB Conc 33.8 g/dL (31.8-35.4); Mean Corpuscular Hemoglobin 32.2 pg (27.0-31.2); Mean Corpuscular Volume 95.1 fl (80-94); Nucleated Red Blood Cells % 0 %; Platelet Count 318 K/mm3 (142-424); Red Blood Count 4.85 M/mm3 (4.60-6.20); Red Cell Distribution Width-SD 44.7 fL; White Blood Count 11.3 K/mm3 (4.8-10.8)
[2025-04-30 14:58] LABS: Albumin Level 4.2 g/dl (3.5-5.0); Chloride 106 mmol/L (98-107); Potassium 4.5 mmoL/L (3.5-5.1); Sodium 140 mmol/L (136-145)
[2025-04-30 15:01] LABS: Alanine Aminotransferase 12 U/L (12-78); Albumin/Globulin Ratio 1.7 (1.1-1.8); Alkaline Phosphatase 98 U/L (38-126); Anion Gap 10.5 mEq/L (5-15); Aspartate Amino Transferase 25 U/L (17-59); Bilirubin,Total 0.5 mg/dl (0.2-1.3); Blood Urea Nitrogen 20 mg/dl (9-20); Calcium 10.9 mg/dl (8.4-10.2); Carbon Dioxide 28 mmol/L (22.0-30.0); Creatinine,Serum 1.10 mg/dl (0.66-1.25); Estimated Glomerular Filt Rate 67 ml/min (>60); GFR (African American) 81 ML/MIN (>60); Globulin 2.5 g/dL (1.3-3.2); Glucose 88 mg/dl (74-100); Total Protein,Serum 6.7 g/dl (6.3-8.2)
== END 2025-04-30 23:59 | disposition home or self-care (01) ==
LOC: LAB 14:13
PROVIDERS: PCP Family Medicine; Visit Provider Internal Medicine Medical Oncology
DX: E85.4 Organ-limited amyloidosis (principal); I43 Cardiomyopathy in diseases classified elsewhere
CPT/HCPCS: 36415; 80053; 85025